=== PATIENT | male | born 1955 | race Caucasian/White ===

== ENCOUNTER 2016-05-02 08:48 | Inpatient (IN) | payer BC ==
--- NOTE | ~2016-05-02 | HP ---
History And Physical [place] [id number] [facility] [place] [place]. [address] NAME: QAMAR TOLLIVER V : 53 STATUS : ADM IN PAT#: [id number] AGE: 61 ADM/REG DATE : 05/02/16 MR#: [id number] REPORT SERV DATE: 05/02/16 DICTATED BY: ELGIN GRANADOS DATE: 05/02/16 REPORT STATUS : Draft TRANSCRIBED BY: MODBetzaida DATE: 05/02/16 DATE OF ADMISSION: 05/02/2016 REASON FOR ADMISSION: COPD with acute exacerbation. HISTORY OF PRESENT ILLNESS: This is a 61-year-old white male, who lives in the [facility]. 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 He generally smokes every day. He has been smoking the artificial cigarettes. He uses an orange VIPE. This is a social outlet he has at [facility] because everybody smokes there. He does not actually smoke cigarettes though some of his colleagues actually roll pipe tobacco for the nicotine effect of that. He has been using his usual social outlet with multiple cigarette users and electronic cigarette use. He does have significant secondhand smoke exposure. He had the flu and then some bronchitis. His sputum is clear. He has no fever, chills, or night sweats. This occurred over the last two weeks approximately. He presented to the emergency room where he was evaluated by Dr. Kyle Emmanuel. His CPK is slightly elevated. He had a creatinine of 1.1 to 1.33 and some hematuria on the urinalysis. We were asked to admit the patient for acute exacerbation of COPD. The patient says he is a confirmed viper and will continue to smoke the vipe cigarettes, take about half the usual dose of nicotine because of social gratification. He knows that cigarettes would kill him and he does have the severe COPD. He does not have oxygen at home. He does have aerosols. He tried an aerosol, it did help him some recently, but just started in the last two days. PAST MEDICAL HISTORY: He does have some high blood pressure. Apparently there was a Clinic for medical care over at the [facility]. Churches occasionally bring food to the people there. Multiple people there with lifestyles absorbing public insurance from disability, smoking, and hanging out over the dav[place] are provided social atmosphere pleasing to him. HOME MEDICATIONS: Include the following: Proventil 2 puffs every four hours as needed; albuterol aerosols 0.083% one nebulizer three times a day; amlodipine 5 mg p.o. daily; fluoxetine 20 mg two p.o. daily at bedtime; gabapentin 300 mg p.o. three times a day; losartan 100 mg p.o. daily; and Flintstones vitamins 1 a day. ALLERGIES: PENICILLIN G. SOCIAL HISTORY: He has no living relatives. He has never been . He has no children. 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 He describes himself as a believer in [employer]. He worked in several construction outfits traveling to [facility] to [place] and History And Physical [address] [address] NAME: QAMAR TOLLIVER V : 53 STATUS : ADM IN [facility]#: [id number] AGE: 61 ADM/REG DATE : 05/02/16 MR#: [id number] REPORT SERV DATE: 05/02/16 DICTATED BY: ELGIN GRANADOS DATE: 05/02/16 REPORT STATUS : Draft TRANSCRIBED BY: GIOVANNY DATE: 05/02/16 doing construction work there. 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 FAMILY HISTORY: His aunts and uncles of old age. He had no brothers and sisters. His father of a stroke after living in assisted living facility, had a tube feeding mother who of old age. REVIEW OF SYSTEMS: He has had hoarseness all his life. He has had no fever, chills, or night sweats. He denies psychiatric involvement. No fits, seizures, convulsions, melena, hematemesis, nausea, vomiting, or diarrhea. He does not get much exercise. He does have swelling of his lower extremities. He enjoys talking to people and meeting new people every day. He has not gained or lost weight recently. He eats over at the [employer], probably mixing food for himself over there or having the Churches bring it to him. The remainder of the review of systems is negative. PHYSICAL EXAMINATION: GENERAL: Obese white male, in moderate respiratory distress. HEENT: Exophthalmos with arcus senilis bilaterally. Slight injection of the sclerae though he uses Visine or another similar compound. NECK: No bruit without any JVD. CHEST: Diffuse expiratory coarse wheezes and deep distant coarse rhonchi bilaterally. HEART: Regular S1, S2 without murmur, gallop, or click. ABDOMEN: Obese. No landmarks are felt. EXTREMITIES: Have 2+ pitting edema in the lower extremities. No distal pulses are palpable. NEUROLOGIC: He withdraws to plantar stimulation. No DTRs elicitable. He does have tenderness at the knees bilaterally. There is no ecchymosis or bruising. No joint effusion notable. His construction analyst is equal and symmetric. Coordination intact. He does have asterixis-like tremors with jerking of both of his upper extremities, he says it has been going on for over 1 year. LYMPHATICS: There is no adenopathy palpable. SKIN: Somewhat unkept. Appears that hygiene has been limited and there is little evidence of recent bathing. LABORATORY DATA: The CT scan of the brain was done which showed no acute infarct. Ventricles are normal in size and configuration. Liver tests were done that showed a CPK of 2537, lipase of 57 which is low, AST of 88, total bilirubin 1.5, magnesium 2.6, creatinine 1.37 with a BUN of 27, sodium 137, potassium 4.6, and glucose was 103. His urine drug screen was negative for any narcotics. Serum drug screen had no Tylenol or alcohol; History And Physical [address] [place]. [address] NAME: QAMAR TOLLIVER V : 53 STATUS : ADM IN [facility]#: [id number] AGE: 61 ADM/REG DATE : 05/02/16 MR#: [id number] REPORT SERV DATE: 05/02/16 DICTATED BY: ELGIN GRANADOS DATE: 05/02/16 REPORT STATUS : Draft TRANSCRIBED BY: MODL DATE: 05/02/16 moderate salicylates. His hemoglobin was 12.8, hematocrit 39, white count 7.8, and platelets were 218,000. INR 1.1. The urinalysis showed a specific gravity of 1.014, pH 5, there were 8 red cells, no white cells per high-powered field. X-rays were done of the knees that did show a degenerative joint disease, left greater than the right. His pelvis x ray showed no fractures. Chest x-ray showed no acute processes and no prior tracings and no prior films for comparison. His spine did show a compression deformity involving the superior endplates of L1 and L2, that were of indeterminate age and the patient says came from heavy lifting at construction sites in the past. ASSESSMENT: 1. Chronic obstructive pulmonary disease acute exacerbation. 2. Diffuse tremors, jerking may be related to the acute event or perhaps with side effects of the gabapentin. I will go ahead and continue gabapentin. 3. Hoarseness. 4. Peripheral neuropathy. 5. Obesity. 6. Hypertension. 7. Depression. 8. Allergies to penicillin and environmental allergies with redness of his eyes when exposed to pollen. 9. Beer use about 1 per day though he had been as much as a half of a 6, as 3 to 5 beers per day in the past. 10.Degenerative joint disease of the knees with some pain from falling. 11.Falling. 12.Recent flu-like illness recovering, possibly the triggering event for the acute exacerbation of the COPD. He only has slight phlegm production. We will not plan to treat with antibiotic at this point.. 13.Compression fractures of L1 and 2, old secondary to lifting injuries previously. PLAN: I am going to give him a short course of prednisone. Add intensified aerosol treatments. Add Symbicort and a low-dose of Jonnie-Dur to help treat the acute process. We will repeat the BMP in the morning with some IV fluid running at 75 overnight. We will go ahead and feed the patient. We will withhold some of the medication if he does. We will continue his Prozac and hold the amlodipine and losartan for parameters. DB/MODL Elgin Granados M.D. / [id number] CC: Vincent Salcedo N.P.
--- NOTE | ~2016-05-02 | DS ---
Discharge Summary [place] [id number] [facility] [place]. [address] NAME: QAMAR TOLLIVER V : 53 STATUS : ADM IN [facility]#: [id number] AGE: 61 ADM/REG DATE : 05/02/16 MR#: [id number] REPORT SERV DATE: 05/04/16 DICTATED BY: AJ PLASCENCIA DATE: 05/04/16 REPORT STATUS : Draft TRANSCRIBED BY: MODL DATE: 05/04/16 ADMISSION DATE: 05/02/2016 DISCHARGE DATE: 05/04/2016 FINAL HOSPITAL DIAGNOSES: 1. Chronic obstructive pulmonary disease exacerbation. 2. Hypertension. 3. Chronic pain. CONSULTATIONS: None. PROCEDURES: CT scan of the brain done on the showing no acute infarct or hemorrhage. The ventricles are of normal size and configuration. CURRENT PHYSICAL FINDINGS AND HISTORY OF PRESENT ILLNESS: Please see dictated H and P by Dr. Diego Pereira. In brief, the patient is a 61-year-old male with above medical history and tobacco abuse, presented with complaints of increasing cough and shortness of breath after multiple illnesses treated outpatient. HOSPITAL COURSE: Initial vital signs, BP was 111/50. Temp was 99.0. He has been afebrile during his hospital stay. He has required on average 2-3 L O2. LABORATORY DATA: He had a procalcitonin of 0.05. He had a creatinine initially of 1.37, followup 0.99 the following day. Initial CPK of 2537, subsequent was 1838. Troponin was less than 0.02. BNP was 83. CBC at admit showed a mild anemia at 12.8, this corrected to 14 and 41 on his subsequent draw. No leukocytosis. Urinalysis had 8 RBCs, otherwise unremarkable. Urine drug screen was negative. HOSPITAL COURSE: The patient was admitted as a COPD exacerbation. He was started on O2. He was started on nebulizer treatments and cough medications. He was given a liter of IV fluids for his increased creatinine and he was monitored appropriately. He was also started on theophylline. Dr. Najera took over his care on the . He was started on Solu- Medrol, pulmonary toilet, and he seemed to be improving. He also did a nocturnal desat, which did show desaturations. He was transitioned over to p.o. steroids. I saw him on the and because of his complaint of frequent falls at home, PT was consulted and recommended he use a walker, but otherwise no other recommendations. His Stahl was discontinued the following morning and his theophylline was discontinued. On re-evaluation on the , the patient was ambulatory with his walker. He was requiring only minimal supplemental O2. He was able to void with his catheter removed. All his questions were answered and he was felt stable for discharge. DISPOSITION: Pending evaluation for home O2 and voiding without his catheter. He will be discontinued. He was encouraged to reschedule his outpatient sleep apnea study, which was previously scheduled with Mark, but he canceled due to illness. He already has a followup appointment scheduled with his PCP this coming Monday. He states some heart test and other issues were done and he is going to follow up on those results. Discharge Summary [address] [address] NAME: QAMAR TOLLIVER V : 53 STATUS : ADM IN [facility]#: [id number] AGE: 61 ADM/REG DATE : 05/02/16 MR#: [id number] REPORT SERV DATE: 05/04/16 DICTATED BY: AJ PLASCENCIA DATE: 05/04/16 REPORT STATUS : Draft TRANSCRIBED BY: GIOVANNY DATE: 05/04/16 MEDICATIONS: Norvasc 5 daily, Prozac 60 daily, Neurontin 300 t.i.d., guaifenesin 600 b.i.d., Cozaar 100, Spiriva, prednisone 20/10 five taper, Proventil inhaler, and nebulizer, multivitamin, Symbicort 160/4.5 two puffs b.i.d., and Spiriva inhaler were also given. He is to return for recurrent symptoms. He was also given a small quantity of hydrocodone. He was asked to follow up with his PCP for any continuation. He was instructed to take only one tablet during the day and only take when he would not be napping nor at night. RADHA/GIOVANNY Aj Plascencia M.D. / [id number] CC: Vincent Glynn N.P.
--- NOTE | ~2016-05-02 | PUL ---
[place] [id number] [place]. [address] NAME: QAMAR TOLLIVER V : 53 STATUS : DIS IN PAT#: [id number] AGE: 61 ADM/REG DATE : 05/02/16 MR#: [id number] REPORT SERV DATE: 05/09/16 DICTATED BY: MISHA LYLE DATE: 05/07/16 REPORT STATUS : Draft TRANSCRIBED BY: MODBetzaida DATE: 05/07/16 PULMONARY FUNCTION TEST REFERRING PHYSICIAN: Aden Najera M.D. Overnight oximetry was performed on room air. Total valid sampling time was 6 hours, 3 minutes and 55 seconds. Saturations were less than 88% for 1 hour, 18 minutes and 32 seconds or 21.6%. OVERALL INTERPRETATION: Abnormal oximetry report while on room air. Consider sleep study or oxygen titration study. Clinical correlation is recommended. AUNG/GIOVANNY Misha Lyle M.D. / [id number] CC: Vincent Glynn N.P.
[2016-05-02 09:20] LABS: WBC (NOT ORDERED) (RFLEX) 0 (0-5)
[2016-05-02 09:25] LABS: BASOPHILS 0.4 %; BASOPHILS ABSOLUTE 0.03 10/3/uL (0.0-0.16); EOSINOPHILS 0.1 %; EOSINOPHILS ABSOLUTE 0.01 10/3/uL (0.0-0.53); ER CBC TAT 0 Hrs 10 Mins; IMMATURE GRANULOCYTES 0.8 %; IMMATURE GRANULOCYTES ABSOLUTE 0.06 10/3/uL (0.0-0.11); LYMPHOCYTES ABSOLUTE 0.94 10/3/uL (0.67-4.30); MEAN CORPUS HGB CONC 32.8 g/dL (32.0-36.0); MEAN CORPUSCULAR HEMOGLOB 32.1 pg (26.0-34.0); MONOCYTES ABSOLUTE 1.02 10/3/uL (0.21-1.20); NEUTROPHILS 73.7 %; NEUTROPHILS ABSOLUTE 5.76 10/3/uL (2.02-8.40); PLATELET COUNT 218 10/3/uL (150-400); RBC DISTRIBUTION WIDTH 16.2 % (12.0-16.0); WHITE BLOOD CELLS 7.8 10/3/uL (4.5-10.5)
[2016-05-02 09:26] LABS: HEMOGLOBIN 12.8 g/dL (13.6-17.8); MANUAL DIFF NO %; MEAN CORPUSCULAR VOLUME 97.7 fL (80-100); RED CELL COUNT 3.99 10/6/uL (4.7-6.1)
[2016-05-02 09:33] LABS: INTERNATIONAL NORMAL RATI 1.1 UNITS (-); PROTIME (NOT ORD) 13.7 SEC (12.0-14.5)
[2016-05-02 09:36] LABS: ASCORBIC ACID (UR NOT ORDER) NEG (NEG); BILIRUBIN, URINE NEGATIVE (NEG); ER URINALYSIS TAT 0 Hrs 21 Mins; KETONE, URINE NEGATIVE (NEG); LEUKOCYTE ESTERASE(NOT OR NEG (NEG); NITRITE (URINE) NEG (NEG)
[2016-05-02 09:38] LABS: SALICYLATE 4.8 MG/DL (-)
[2016-05-02 09:39] LABS: ACETAMINOPHEN LEVEL (TYLENOL) < 2.0 MCG/ML (10.0-20.0); ALCOHOL < 10 MG/DL (0)
[2016-05-02 09:44] LABS: AMPHETAMINES (NOT ORD) NEG (NEG); BARBITURATES (NOT ORDERED NEG (NEG); BENZODIAZEPINES (NOT ORD) NEG (NEG); CANNABINOIDS (THC) NEG (NEG); COCAINE (NOT ORDERED) NEG (NEG); OPIATES NEG (NEG); PHENCYCLIDINE(PCP) NEG (NEG); TRICYCLICS NEG (NEG)
[2016-05-02 09:54] LABS: ALBUMIN 3.8 G/DL (3.5-5.0); ALKALINE PHOSPHATASE 46 U/L (45-117); BUN (BLOOD UREA NITROGEN) 27 MG/DL (6-23); CALCIUM, SERUM 9.4 MG/DL (8.5-10.4); CHLORIDE, SERUM 101 MMOL/L (96-112); CO2 (CARBON DIOXIDE) 26 MMOL/L (24-34); CPK 2537 U/L (0-200); CREATININE 1.37 MG/DL (0.70-1.30); DIRECT BILIRUBIN 0.3 MG/DL (0.0-0.4); GFR AFRICAN AMERICAN 64 ML/MIN (>=60); GFR NON AFRICAN AMERICAN 55 ML/MIN (>=60); GLUCOSE, SERUM 103 MG/DL (60-99); INDIRECT BILIRUBIN(NOT ORDER) 1.2 MG/DL (0.1-0.9); POTASSIUM, SERUM 4.6 MMOL/L (3.5-5.3); SGOT(AST) 88 U/L (5-40); SGPT(ALT) 46 U/L (5-65); SODIUM, SERUM 137 MMOL/L (135-148); TOTAL BILIRUBIN 1.5 MG/DL (0-1.2); TOTAL PROTEIN 7.3 G/DL (6.0-8.5); TROPONIN I <0.02 NG/ML (<0.05)
[2016-05-02 09:55] LABS: CHEST PAIN PROFILE TAT 0 Hrs 39 Mins
[2016-05-02] MEDS ORDERED: COZAAR100 MG PO (10:38)
[2016-05-02] MEDS ORDERED: NEUR300 PO (10:38)
[2016-05-02] MEDS ORDERED: PROVHFA INH (10:38)
[2016-05-02] MEDS ORDERED: NORV5 PO (10:38)
[2016-05-02] MEDS ORDERED: PROZAC PO (10:39)
[2016-05-02] MEDS ORDERED: FLINTSTONES (10:39)
[2016-05-02] MEDS ORDERED: ALBUTEROL0.083 % INH (10:39)
[2016-05-03 05:28] LABS: BASOPHILS 0 %; EOSINOPHILS 0 %; HEMATOCRIT 41.8 % (40.0-51.0); HEMOGLOBIN 14.1 g/dL (13.6-17.8); IMMATURE GRANULOCYTES 0.7 %; IMMATURE GRANULOCYTES ABSOLUTE 0.04 10/3/uL (0.0-0.11); LYMPHOCYTES 5.3 %; LYMPHOCYTES ABSOLUTE 0.32 10/3/uL (0.67-4.30); MANUAL DIFF NO %; MEAN CORPUS HGB CONC 33.7 g/dL (32.0-36.0); MEAN CORPUSCULAR HEMOGLOB 33.3 pg (26.0-34.0); MEAN CORPUSCULAR VOLUME 98.6 fL (80-100); MEAN PLATELET VOLUME 10.4 fL (9.2-13.0); MONOCYTES 1.7 %; NEUTROPHILS 92.3 %; NEUTROPHILS ABSOLUTE 5.59 10/3/uL (2.02-8.40); PLATELET COUNT 208 10/3/uL (150-400); RBC DISTRIBUTION WIDTH 15.6 % (12.0-16.0); RED CELL COUNT 4.24 10/6/uL (4.7-6.1); WHITE BLOOD CELLS 6.1 10/3/uL (4.5-10.5)
[2016-05-03 05:55] LABS: CALCIUM, SERUM 9.1 MG/DL (8.5-10.4); CHLORIDE, SERUM 101 MMOL/L (96-112); CHOL/HDL RATIO(NOT ORDER) 1.8 (0-5); CHOLESTEROL 158 MG/DL (< 200); CO2 (CARBON DIOXIDE) 26 MMOL/L (24-34); CPK 1838 U/L (0-200); CREATININE 0.99 MG/DL (0.70-1.30); GFR AFRICAN AMERICAN 94 ML/MIN (>=60); GFR NON AFRICAN AMERICAN 81 ML/MIN (>=60); LDL CHOLESTEROL 50 MG/DL (< 130); NON-HDL CHOLESTEROL 72 MG/DL (< 160); POTASSIUM, SERUM 4.5 MMOL/L (3.5-5.3); SODIUM, SERUM 139 MMOL/L (135-148); TRIGLYCERIDE 114 MG/DL (< 150)
[2016-05-03 05:59] LABS: BUN (BLOOD UREA NITROGEN) 21 MG/DL (6-23); GLUCOSE, SERUM 167 MG/DL (60-99); HDL CHOLESTEROL 86 MG/DL (> 39)
[2016-05-03 06:58] LABS: PROCALCITONIN 0.05 ng/mL (<0.5)
[2016-05-04] MEDS ORDERED: NORCO1 TA1 PO (10:40)
[2016-05-04] MEDS ORDERED: SPIRIVA INH (10:41)
[2016-05-04] MEDS ORDERED: P10 PO (10:41)
[2016-05-04] MEDS ORDERED: HUMI PO (10:42)
[2016-05-04] MEDS ORDERED: SYMBICORT 160/41 INH INH (10:42)
== END 2016-05-04 12:20 | disposition home or self-care (01) | DRG 191 ==
LOC: ER 08:48 → 4SO 11:42
PROVIDERS: Emergency Medicine; Internal Medicine
DX: J44.1 Chronic obstructive pulmonary disease with (acute) exacerbation (principal); Z68.42 Body mass index [BMI] 45.0-49.9, adult; M62.82 Rhabdomyolysis; F17.210 Nicotine dependence, cigarettes, uncomplicated; M19.90 Unspecified osteoarthritis, unspecified site; M54.9 Dorsalgia, unspecified; Z88.0 Allergy status to penicillin; R27.8 Other lack of coordination; R49.0 Dysphonia; G62.9 Polyneuropathy, unspecified; E66.9 Obesity, unspecified; F32.9 Major depressive disorder, single episode, unspecified; M17.2 Bilateral post-traumatic osteoarthritis of knee; Z91.81 History of falling; S32.019S Unspecified fracture of first lumbar vertebra, sequela; S32.029S Unspecified fracture of second lumbar vertebra, sequela; X50.0XXS Overexertion from strenuous movement or load, sequela; G89.29 Other chronic pain
CPT/HCPCS: 70450; 71010; 72100; 72170; 73560-50; 80048; 80061; 80076; 80305; 80307; 81001; 82550; 83690; 83735; 83880; 84145; 84443; 84484; 85025; 85610; 85730; 93005; 94640; 94668; 94762; 97162-GP; 99285; A9270-GY; J1170; J2920